=== PATIENT | female | born 1985 | race Caucasian/White ===

== ENCOUNTER 2016-11-27 11:28 | Emergency (ER) | payer OTHER, MEDICAID ==
[~2016-11-27] VITALS: Ht 165.1 cm; Wt 107.5 kg
[~2016-11-27 11:28] MED LIST: RANI75TA30 PO
[2016-11-27] MEDS ORDERED: morphine INJ 10 MG/ML 1ML (SYR OR VIAL) IM STA (11:54)
[2016-11-27] MEDS ORDERED: SILVER SULFADIAZINE 50 GM CREAM ONE (12:37)
--- NOTE | 2016-11-27 12:37 | ED Integumentary General ---
General Chief Complaint: sunburn Stated Complaint: SUNBURN BLEEDING ON LEGS Nursing Triage Note: patient is on tegretol and was in the sun for 1 hr yesterday. now c/o sunburn. Source: patient Exam Limitations: no limitations History of Present Illness Time seen by provider: 11:40 Initial Comments 31 yo female patient presents to the ED with c/o sunburn. States she is on tegretol and was in the sun for 1 hr yesterday. Reports wearing SPF 50 sunscreen yesterday. Timing/Duration: yesterday, getting worse Location: generalized Possible Cause: other (sun exposure) Modifying Factors: worse with other (no improvement with ice packs or aloe) Allergies and Home Medications Allergies Coded Allergies: Latex (Unverified Allergy, Mild, ITCHING, 03/04/09) Home Medications Ranitidine Hcl 75 Mg Tablet, 75 MG PO BID, #14 Ref 0 Prescribed by: FRED BOX on 03/04/09 2234 Silver Sulfadiazine 20 Gm Cream..g., 20 GM TP BID, #1 Ref 0 Prescribed by: DIANE ROBISON on 11/27/16 1300 Constitutional: No diaphoresis, No dizziness, No fever, No malaise EENTM: no symptoms reported Respiratory: No cough, No short of breath Cardiovascular: No chest pain, No edema, No syncope Gastrointestinal: No abdominal pain, No diarrhea, No nausea, No vomiting Genitourinary: no symptoms reported Musculoskeletal: no symptoms reported Skin: see HPI, change in color (sunburn) Psychiatric/Neurological: Denies Headache, Denies Numbness, Denies Paresthesia , Denies Seizure, Denies Tingling, Denies Weakness All Other Systems Reviewed Negative Unless Noted: Yes (Negative excepted noted.) Past Obpucev-Rhfqfe-Zyfoiy Hx Patient Social History Recent Foreign Travel: No Contact w/Someone Who Travel: No Surgeries HX Surgeries: Yes Surgeries: Brain Shunt (8 total brain surgeries) Respiratory Hx Respiratory Disorders: No Cardiovascular Hx Cardiac Disorders: No Neurological Hx Neurological Disorders: Yes (trigeminal neuralgia) Genitourinary Hx Genitourinary Disorders: No Gastrointestinal Gastrointestinal Disorders: Hiatal Hernia Musculoskeletal Hx Musculoskeletal Disorders: Yes (Laly-danlos syndrome, cervical spondylosis ) Cancer Hx Cancer: No Reviewed Nursing Assessment Reviewed/Agree w Nursing PMH: Yes Family Medical History Significant Family History: No Pertinent Family Hx Physical Exam Vital Signs Vital Sign - Last 12Hours 11/27/16 13:18 Pulse 74 Resp 18 Pulse Ox 97 Capillary Refill : General Appearance: WD/WN, no apparent distress Cardiovascular: normal peripheral pulses, regular rate, rhythm, no edema, no murmur Respiratory: lungs clear, normal breath sounds, no respiratory distress Gastrointestinal: normal bowel sounds, soft, other (superficial sunburn of the abdominal wall w/o blisters.) Back: normal inspection Extremities: normal range of motion, no pedal edema, other (erythema of the anterior legs consistent with h/o sunburn. soft tissue tenderness noted. petechia noted of the anterior proximal thighs.) Neurologic/Psychiatric: alert, normal mood/affect, oriented x 3 Skin: other (erythema of the anterior legs consistent with h/o sunburn. soft tissue tenderness noted. petechia noted of the anterior proximal thighs. erythema of the face, anterior neck, anterior chest, and BUE consistent with sunburn w/o blisters.) Skin Problem Location: generalized Skin Problem Character: other (erythema of the anterior legs consistent with h/ o sunburn. soft tissue tenderness noted. petechia noted of the anterior proximal thighs. erythema of the face, anterior neck, anterior chest, and BUE consistent with sunburn w/o blisters.) Progress/Results/Core Measures Results/Orders My Orders Orders - DIANE ROBISON Morphine Injection (Morphine Injection (11/27/16 11:54) Silver Sulfadiazine 50 Gm (Ssd 1% 50 Gm) (11/28/16 09:00) Silver Sulfadiazine 50 Gm (Ssd 1% 50 Gm) (11/27/16 12:37) Vital Signs/I&O Vital Sign - Last 12Hours 11/27/16 13:18 Pulse 74 Resp 18 Pulse Ox 97 Departure Communication Progress Notes patient seen and evaluated. Plan for discharge home with follow-up as an outpatient with primary care physician early this week for recheck. Topical Silvadene for symptom relief. Patient to continue usual home medications. Impression Impression: Primary Impression: Phototoxic drug eruption Disposition: HOME, SELF-CARE Condition: Improved Departure-Patient Inst. Decision time for Depature: 12:59 Referrals: NO,LOCAL PHYSICIAN (PCP/Family) Primary Care Physician Patient Instructions: Sunburn (DC) Add. Discharge Instructions: Medications as directed. Continue usual home medicines. Ibuprofen over the counter 800 mg by mouth every 8 hours as needed for pain. Cool compresses as needed. ice packs for 20 minute intervals as needed (make sure to put a cloth between your skin and the ice pack). Follow-up with your family practitioner for recheck. Return to the emergency department for worsened pain, fever, vomiting, headache, dizziness, chest pain, shortness of breath, or any other concerns. Scripts Silver Sulfadiazine (Silvadene) 20 Gm Cream..g. 20 GM TP BID, #1 TUBE 0 Refills Prov: DIANE ROBISON 11/27/16 DIANE ROBISON Nov 27, 2016 12:37
[2016-11-27] MEDS ORDERED: SILV20CR14 TP (13:00)
[2016-11-27 13:18] VITALS: BP 135/81
[2016-11-28] MEDS ORDERED: SILVER SULFADIAZINE 50 GM CREAM TOP SCH (09:00)
== END 2016-11-27 13:18 | disposition home or self-care (01) ==
LOC: EDUNIT# 11:28 → ER 11:30
DX: L27.0 Generalized skin eruption due to drugs and medicaments taken internally (principal); L55.0 Sunburn of first degree; Q79.6 Ehlers-Danlos syndromes; Z79.899 Other long term (current) drug therapy; Z98.2 Presence of cerebrospinal fluid drainage device
CPT/HCPCS: 96372; 99281

== ENCOUNTER 2017-01-29 18:46 | Emergency (ER) | payer OTHER, MEDICAID ==
[~2017-01-29] VITALS: Ht 165.1 cm; Wt 106.6 kg
[~2017-01-29 18:46] MED LIST changes: +SILV20CR14 TP
[2017-01-29] MEDS ORDERED: ESTR0.5T (19:14)
[2017-01-29] MEDS ORDERED: CARB100C8 (19:14)
[2017-01-29] MEDS ORDERED: OXYC-465 (19:14)
[2017-01-29] MEDS ORDERED: HYDR4TAB (19:14)
[2017-01-29] MEDS ORDERED: BACL10TA (19:14)
[2017-01-29 19:29] LABS: BILIRUBIN,URINE NEGATIVE (NEGATIVE); KETONES,URINE NEGATIVE (NEGATIVE); LEUKOCYTE ESTERASE ,URINE 1+ (NEGATIVE); NITRITE,URINE NEGATIVE (NEGATIVE); PH,URINE 5 (5-9); PROTEIN,URINE NEGATIVE (NEGATIVE); UROBILINOGEN,URINE NORMAL (NORMAL)
--- NOTE | 2017-01-29 19:38 | Diagnostic Imaging Report ---
INDICATION: Left-sided abdominal pain radiating into the pelvis. Ventricular shunt placement 11 days ago. EXAMINATION: Supine views of the abdomen were obtained. FINDINGS: There is fecal material scattered throughout a nondilated colon, consistent with mild constipation. The small bowel is normal. There is no mass or calculus. Shunt tubing is present in the left midabdomen and in the pelvis with no breaks or kinks identified. No mass is evident. IMPRESSION: Mild constipation. Dictated by: Dictated on workstation # [id number]
[2017-01-29 19:58] LABS: BASOPHILS # (AUTO) 0.1 10^3/uL (0.0-0.1); BASOPHILS % (AUTO) 1 % (0-10); EOSINOPHILS # (AUTO) 0.6 10^3/uL (0.0-0.3); EOSINOPHILS % (AUTO) 5 % (0-10); LYMPHOCYTES # (AUTO) 3.4 X 10^3 (1.0-4.0); LYMPHOCYTES % (AUTO) 30 % (12-44); MEAN CORPUSCULAR HEMOGLOBIN 28 PG (25-34); MEAN CORPUSCULAR HGB CONC 33 G/DL (32-36); MEAN CORPUSCULAR VOLUME 87 FL (80-99); MEAN PLATELET VOLUME 9.9 FL (7.4-10.4); MONOCYTES # (AUTO) 0.8 X 10^3 (0.0-1.0); MONOCYTES % (AUTO) 8 % (0-12); NEUTROPHILS # (AUTO) 6.2 X 10^3 (1.8-7.8); NEUTROPHILS % (AUTO) 56 % (42-75); PLATELET COUNT 298 10^3/uL (130-400); RED BLOOD COUNT 4.99 10^6/uL (4.35-5.85); RED CELL DISTRIBUTION WIDTH 13.4 % (10.0-14.5); WHITE BLOOD COUNT 11.1 10^3/uL (4.3-11.0)
--- NOTE | 2017-01-29 20:13 | ED General ---
General Chief Complaint: General Problems/Pain Stated Complaint: SHARP PAIN AT INCISION FROM SURGERY Nursing Triage Note: abdominal incisional pain radiating to groin. Nursing Sepsis Screen: No Definite Risk History of Present Illness Time Seen by Provider: 19:15 Initial Comments Patient has Arnold-Chiari malformation, had surgery 11 days ago for shunt and tubing replacement at [place], [place]. Today she noted incisional pain in her lower abdomen that radiates to her groin. Spoke with her surgeon's nurse by text, options and treatment were discussed with her and she decided to have evaluation here, instead of returning to [place]. Patient denies a headache, however her surgeon is adjusting the shunt pressure as her body is adapting to the ICP. Timing/Duration: 4-6 Hours Modifying Factors: improves with Rest Associated Systoms: Denies Symptoms Allergies and Home Medications Allergies Coded Allergies: latex (Unverified Allergy, Mild, ITCHING, 03/04/09) heparin (Verified Allergy, Unknown, 11/27/16) levetiracetam (Verified Allergy, Unknown, 11/27/16) metoclopramide (Verified Allergy, Unknown, 11/27/16) Uncoded Allergies: IV BENADRYL (Allergy, Unknown, 11/27/16) ZOFRAN (Allergy, Unknown, 11/27/16) Home Medications Baclofen 10 Mg Tablet, #28 (Reported) Carbamazepine 100 Mg Cpmp.12hr, #60 (Reported) Estradiol 0.5 Mg Tablet, #30 (Reported) Hydromorphone HCl 4 Mg Tablet, #90 (Reported) Oxycodone HCl/Acetaminophen 1 Each Tablet, #120 (Reported) Constitutional: no symptoms reported, see HPI Gastrointestinal: RLQ, LLQ, see HPI Genitourinary: see HPI, frequency : No (history of hysterectomy) All Other Systems Reviewed Negative Unless Noted: Yes Past Hlvmdmv-Yoybjb-Ovyeke Hx Patient Social History Alcohol Use: Denies Use Recreational Drug Use: No Smoking Status: Never a Smoker 2nd Hand Smoke Exposure: No Recent Foreign Travel: No Contact w/Someone Who Travel: No Recent Infectious Disease Expo: No Recent Hopitalizations: No Seasonal Allergies Seasonal Allergies: No Surgeries HX Surgeries: Yes Surgeries: Appendectomy, Brain Shunt, Hysterectomy, Orthopedic, Tonsillectomy Respiratory Hx Respiratory Disorders: No Cardiovascular Hx Cardiac Disorders: No Neurological Hx Neurological Disorders: Yes (trigeminal neuralgia) Neurological Disorders: Seizure Disorder Reproductive System : No [employer] History: Hysterectomy Genitourinary Hx Genitourinary Disorders: No Gastrointestinal Gastrointestinal Disorders: Hiatal Hernia Musculoskeletal Hx Musculoskeletal Disorders: Yes (Laly-danlos syndrome, cervical spondylosis ) Cancer Hx Cancer: No Reviewed Nursing Assessment Reviewed/Agree w Nursing PMH: Yes Family Medical History Significant Family History: No Pertinent Family Hx Physical Exam Vital Signs Vital Sign - Last 12Hours 01/29/17 19:14 Temp 98.4 Pulse 83 Resp 16 B/P (MAP) 136/93 Pulse Ox 97 O2 Delivery Room Air Capillary Refill : Less Than 3 Seconds General Appearance: No Apparent Distress, WD/WN Eyes: Bilateral Eye EOMI, Bilateral Eye Normal Inspection, Bilateral Eye PERRL HEENT: PERRL/EOMI, TMs Normal, Normal ENT Inspection, Pharynx Normal Neck: Full Range of Motion, Normal Inspection, Non Tender, Supple Respiratory: Chest Non Tender, Lungs Clear Cardiovascular: Regular Rate, Rhythm, No Edema, Normal Peripheral Pulses Gastrointestinal: Normal Bowel Sounds, Soft, No Distended, No Guarding, Tenderness (bilateral lower quadrants. Well-healed incisions to left flank and abdomen, no redness, discharge, induration or fluctuance.) Extremity: Normal Capillary Refill, No Calf Tenderness, No Pedal Edema Neurologic/Psychiatric: Alert, Oriented x3, No Motor/Sensory Deficits, Normal Mood/Affect Skin: Normal Color, Warm/Dry, Other (well healed right temporal incision, no erythema, warmth, or drainage.) Progress/Results/Core Measures Results/Orders Lab Results Laboratory Tests Test 01/29/17 19:22 01/29/17 19:51 Range/Units Urine Color YELLOW Urine Clarity CLEAR Urine pH 5 5-9 Urine Specific [place] 1.020 1.016-1.022 Urine Protein NEGATIVE NEGATIVE Urine Glucose (UA) NEGATIVE NEGATIVE Urine Ketones NEGATIVE NEGATIVE Urine Nitrite NEGATIVE NEGATIVE Urine Bilirubin NEGATIVE NEGATIVE Urine Urobilinogen NORMAL NORMAL MG/DL Urine Leukocyte Esterase 1+ H NEGATIVE Urine RBC (Auto) NEGATIVE NEGATIVE Urine RBC NONE /HPF Urine WBC 2-5 /HPF Urine Squamous Epithelial Cells 10-25 H /HPF Urine Crystals NONE /LPF Urine Bacteria FEW H /HPF Urine Casts NONE /LPF Urine Mucus NEGATIVE /LPF Urine Culture Indicated NO White Blood Count 11.1 H 4.3-11.0 10^3/uL Red Blood Count 4.99 4.35-5.85 10^6/uL Hemoglobin 14.1 11.5-16.0 G/DL Hematocrit 43 35-52 % Mean Corpuscular Volume 87 80-99 FL Mean Corpuscular Hemoglobin 28 25-34 PG Mean Corpuscular Hemoglobin Concent 33 32-36 G/DL Red Cell Distribution Width 13.4 10.0-14.5 % Platelet Count 298 130-400 10^3/uL Mean Platelet Volume 9.9 7.4-10.4 FL Neutrophils (%) (Auto) 56 42-75 % Lymphocytes (%) (Auto) 30 12-44 % Monocytes (%) (Auto) 8 0-12 % Eosinophils (%) (Auto) 5 0-10 % Basophils (%) (Auto) 1 0-10 % Neutrophils # (Auto) 6.2 1.8-7.8 X 10^3 Lymphocytes # (Auto) 3.4 1.0-4.0 X 10^3 Monocytes # (Auto) 0.8 0.0-1.0 X 10^3 Eosinophils # (Auto) 0.6 H 0.0-0.3 10^3/uL Basophils # (Auto) 0.1 0.0-0.1 10^3/uL Sodium Level 142 135-145 MMOL/L Potassium Level 4.2 3.6-5.0 MMOL/L Chloride Level 109 H 98-107 MMOL/L Carbon Dioxide Level 23 21-32 MMOL/L Anion Gap 10 5-14 MMOL/L Blood Urea Nitrogen 13 7-18 MG/DL Creatinine 0.80 0.60-1.30 MG/DL Estimat Glomerular Filtration Rate > 60 BUN/Creatinine Ratio 16 Glucose Level 97 70-105 MG/DL Calcium Level 9.3 8.5-10.1 MG/DL Total Bilirubin 0.3 0.1-1.0 MG/DL Aspartate Amino Transf (AST/SGOT) 13 5-34 U/L Alanine Aminotransferase (ALT/SGPT) 31 0-55 U/L Alkaline Phosphatase 108 40-136 U/L Total Protein 7.0 6.4-8.2 GM/DL Albumin 4.2 3.2-4.5 GM/DL My Orders Orders - TAM [facility] Cbc With Automated Diff (01/29/17 19:21) Comprehensive Metabolic Panel (01/29/17 19:21) Ua Culture If Indicated (01/29/17 19:21) Abdomen/Kub 1view (01/29/17 19:21) Urine Bedside (01/29/17 19:22) Vital Signs/I&O Vital Sign - Last 12Hours 01/29/17 01/29/17 19:14 20:36 Temp 98.4 98.4 Pulse 83 83 Resp 16 16 B/P (MAP) 136/93 Pulse Ox 97 97 O2 Delivery Room Air Blood Pressure Mean: 107 Point of Care Testing Urine -Bedside: Negative Progress Note : Time: 19:15 Progress Note Initial evaluation completed, recommended CBC, KUB, CMP and UA. Will reevaluate. 2000 reviewed results of KUB and labs, all essentially normal with some mild constipation noted. Discussed further follow-up versus consult with surgeon at [place] by phone. The patient feels more reassured since her labs are normal. She would like to proceed with discharge to home at this time. Options and treatment were reviewed with her in detail along with risks versus benefits. She is very familiar with her procedures that have been completed, and feels competent and caring for herself at home but will return to the emergency department if symptoms worsen. She has appropriate medicines at home for pain and spasms. Diagnostic Imaging Diagonstic Imaging: Xray Plain Films/CT/US/NM/MRI: abdomen Comments NAME: KRYSTAL ESTRADA [facility] REC#: [id number] PT STATUS: REG ER : 1985 PHYSICIAN: TAM [facility] ADMIT DATE: 01/29/17/ER Signed Date of Exam: 01/29/17 ABDOMEN/KUB 1VIEW INDICATION: Left-sided abdominal pain radiating into the pelvis. Ventricular shunt placement 11 days ago. EXAMINATION: Supine views of the abdomen were obtained. FINDINGS: There is fecal material scattered throughout a nondilated colon, consistent with mild constipation. The small bowel is normal. There is no mass or calculus. Shunt tubing is present in the left midabdomen and in the pelvis with no breaks or kinks identified. No mass is evident. IMPRESSION: Mild constipation. Dictated by: Dictated on workstation # [id number] Dict: 01/29/171935 Trans: 01/29/171942 Interpreted by: STEPHANIE MORAN MD Electronically signed by: STEPHANIE MORAN MD 01/29/171942 Reviewed: Reviewed by Me Departure Impression Impression: Primary Impression: Pain, abdominal, generalized Additional Impression: Arnold-Chiari malformation Disposition: 01 HOME, SELF-CARE Condition: Improved Departure-Patient Inst. Decision time for Depature: 20:30 Referrals: NO,LOCAL PHYSICIAN (PCP/Family) Primary Care Physician Patient Instructions: Acute Abdomen (Belly Pain), Adult (DC) Add. Discharge Instructions: Continue taking her medication as prescribed by surgeon. If symptoms do not improve follow-up with surgeon at [place], [place]. All discharge instructions reviewed with patient and/or family. Voiced understanding. TAM BEACH Jan 29, 2017 20:13
[2017-01-29 20:14] LABS: ALANINE AMINOTRANSFERASE 31 U/L (0-55); ALBUMIN 4.2 GM/DL (3.2-4.5); ANION GAP 10 MMOL/L (5-14); ASPARTATE AMINO TRANSFERASE 13 U/L (5-34); BILIRUBIN,TOTAL 0.3 MG/DL (0.1-1.0); BLOOD UREA NITROGEN 13 MG/DL (7-18); BUN/CREATININE RATIO 16; CALCIUM 9.3 MG/DL (8.5-10.1); CARBON DIOXIDE 23 MMOL/L (21-32); CHLORIDE 109 MMOL/L (98-107); GFR ESTIMATED > 60; GLUCOSE 97 MG/DL (70-105); POTASSIUM 4.2 MMOL/L (3.6-5.0); SODIUM 142 MMOL/L (135-145)
[2017-01-29 20:36] VITALS: BP 136/93
== END 2017-01-29 20:35 | disposition home or self-care (01) ==
LOC: EDUNIT# 18:46 → ER 18:48
DX: G89.18 Other acute postprocedural pain (principal); R10.84 Generalized abdominal pain; G93.5 Compression of brain; G40.909 Epilepsy, unspecified, not intractable, without status epilepticus; Z98.890 Other specified postprocedural states; Z90.5 Acquired absence of kidney; Z90.710 Acquired absence of both cervix and uterus; Z90.89 Acquired absence of other organs; Z87.19 Personal history of other diseases of the digestive system
CPT/HCPCS: 36415; 74000; 80053; 81000; 84703; 85025; 99283